=== PATIENT | female | born 1950 | race Caucasian/White ===

== ENCOUNTER 2022-04-25 16:10 | Emergency (ER) | payer OTHER ==
[2022-04-25 16:33] VITALS: TEMP 98.5; BMI 25.9
[2022-04-25 17:59] VITALS: BP 132/47; PULSE 51
== END 2022-04-25 19:04 | disposition left against medical advice (07) ==
LOC: JER 16:10
DX: I48.91 Unspecified atrial fibrillation (principal)
CPT/HCPCS: 93005; 93010; 99283-25

== ENCOUNTER → 2022-05-03 | Emergency (ER) | payer OTHER ==
[2022-05-03 03:04] VITALS: BP 169/92; PULSE 92; BMI 28.3
== END ==
LOC: JER 02:20
DX: G47.00 Insomnia, unspecified (principal); R07.9 Chest pain, unspecified
CPT/HCPCS: 99281-25